=== PATIENT | male | born 1955 | race Asian ===

== ENCOUNTER 2018-12-09 17:59 | Emergency (ER) | payer OTHER ==
[~2018-12-09] VITALS: Ht 172.7 cm; Wt 65.8 kg
--- NOTE | 2018-12-09 18:00 | NUR ---
Patient to ER bed 4 to gown for evaluation. Side rails up. Report given to LUIS EDUARDO HESS.
[2018-12-09 18:06] VITALS: BP_SYST 136
[2018-12-09] MEDS ORDERED: IBUPROFEN 600 MG TABLET PO ONE (19:00)
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
--- NOTE | 2018-12-09 20:00 | NUR ---
Dr. Franklin bedside for Pt update
--- NOTE | 2018-12-09 21:00 | NUR ---
VSS no s/s of acute distress resting on gurney rails up
[2018-12-09 22:00] VITALS: BP_SYST 148
--- NOTE | 2018-12-09 22:00 | NUR ---
Patient given written and verbal discharge instructions and verbalizes understanding. ER MD discussed with patient the results and treatment provided. Patient in stable condition. ID arm band removed. Rx of [place] and Zofran given. Patient educated on pain management and to follow up with PMD. Pain Scale 0/10 Opportunity for questions provided and answered. Medication side effect fact sheet provided.
== END 2018-12-09 22:00 | disposition home or self-care (01) ==
LOC: SED 17:59
DX: S43.401A Unspecified sprain of right shoulder joint, initial encounter (principal); S13.4XXA Sprain of ligaments of cervical spine, initial encounter; S33.5XXA Sprain of ligaments of lumbar spine, initial encounter; S09.8XXA Other specified injuries of head, initial encounter; I10 Essential (primary) hypertension; E78.5 Hyperlipidemia, unspecified; V89.2XXA Person injured in unspecified motor-vehicle accident, traffic, initial encounter; Y93.89 Activity, other specified; Y92.89 Other specified places as the place of occurrence of the external cause; Y99.8 Other external cause status
CPT/HCPCS: 70450-TC; 72040-TC; 72100-TC; 73030; 99284